=== PATIENT | female | born 1960 | race Caucasian/White ===

== ENCOUNTER → 2016-08-30 | Outpatient (CLI) | payer BC ==
--- NOTE | 2016-08-31 08:37 | USB ---
Reason for exam: clinical finding. History: Patient is postmenopausal. Benign excisional biopsy of the left breast. Indicated problem(s): pain in the left breast. Physical Findings: Nurse Summary: patient unsure is she has breast discharge (nurse dw). US Breast LT Left breast ultrasound includes all four quadrants, the retroareolar region and axilla. Finding demonstrates duct ectasia at 2 o'clock. These results were verbally communicated with the patient and result sheet given to the patient on 08/30/16. ASSESSMENT: Benign, BI-RAD 2 RECOMMENDATION: Return to routine screening mammogram schedule for both breasts. Back on schedule. Manage patient on a clinical basis. Consider surgical consultation.
== END | disposition home or self-care (01) ==
LOC: RADUSWWP 15:07
PROVIDERS: ATTEND Family Medicine
DX: N64.4 Mastodynia (principal); N64.59 Other signs and symptoms in breast

== ENCOUNTER → 2017-02-21 | Outpatient (CLI) | payer BC ==
--- NOTE | 2017-02-25 09:04 | MM ---
Reason for exam: screening (asymptomatic). Last mammogram was performed 1 year and 2 months ago. History: Patient is postmenopausal. Benign excisional biopsy of the left breast. Physical Findings: A clinical breast exam by your physician is recommended on an annual basis and results should be correlated with mammographic findings. MG Screening Mammo w CAD Bilateral CC and MLO view(s) were taken. Prior study comparison: December 28, 2015, bilateral MG screening mammo w CAD. November 26, 2014, bilateral MG diagnostic mammo w CAD [facility]. The breast tissue is heterogeneously dense. This may lower the sensitivity of mammography. Finding: There are typically benign overall stable diffuse/scattered calcifications in both breasts. No suspicious abnormality. No significant changes in finding since December 28, 2015 and November 26, 2014. ASSESSMENT: Benign, BI-RAD 2 RECOMMENDATION: Routine screening mammogram of both breasts in 1 year.
== END | disposition home or self-care (01) ==
LOC: RADMAMWWP 16:08
PROVIDERS: ATTEND Family Medicine
DX: Z12.31 Encounter for screening mammogram for malignant neoplasm of breast (principal)

== ENCOUNTER → 2017-05-08 | Outpatient (CLI) | payer BC ==
--- NOTE | 2017-05-09 22:11 | BD ---
EXAMINATION TYPE: MG DEXA axial skeleton. DATE OF EXAM: 05/08/2017 COMPARISON: NONE CLINICAL HISTORY: Height: 61 IN Weight: 117 LBS FRAX RISK QUESTIONS: Alcohol (3 or more units per day): NO Family History (Parent hip fracture): NO Glucocorticoids (More than 3mos): NO (Ex: prednisone, prednisolone, methylprednisolone, dexamethasone, and hydrocortisone). History of Fracture in Adulthood: NO Secondary Osteoporosis: 1. Type 1 Diabetes: NO 2. Hyperthyroidism: NO 3. Menopause before 45: NO 4. Malnutrition: NO 5. Chronic liver disease: NO Rheumatoid Arthritis: NO Current Tobacco Use: NO RISK FACTORS HISTORY OF: Active: YES Postmenopausal woman: AGE 53 MEDICATIONS: Additional Medications: CALCIUM, CELEXA,VIT D, EXAM MEASUREMENTS: Bone mineral densitometry was performed using the [employer] System. Bone mineral density as measured about the Lumbar spine is: ----- L1-L4(G/cm2): 0.873 T Score Values are as follows: ----- L2: -3.1 ----- L3: -2.2 ----- L4: -2.5 ----- L1-L4: -2.6 Bone mineral density BASELINE Bone mineral density about the R hip (g/cm2): 0.662 Bone mineral density about the L hip (g/cm2): 0.725 T Score values are as follows: -----R Neck: -2.7 -----L Neck: -2.3 -----R Total: -2.2 -----L Total: -1.8 Bone mineral density BASELINE IMPRESSION: Osteoporosis (T Score less than -2.5) as noted by T Score values at the There is increased fracture risk and therapy is usually indicated based on age. Re-Screen 1-2 years. NOTE: T-SCORE=SD OF THE YOUNG ADULT MEAN.
== END | disposition home or self-care (01) ==
LOC: RADBDWWP 15:50
PROVIDERS: ATTEND Family Medicine
DX: M81.0 Age-related osteoporosis without current pathological fracture (principal)
CPT/HCPCS: 77080

== ENCOUNTER → 2017-05-09 | Outpatient (CLI) | payer BC ==
--- NOTE | 2017-05-09 12:07 | FL ---
Modified barium swallow. HISTORY: Dysphagia. Modified barium swallow was performed with the department of speech pathology. The patient was prese nted with various consistencies of barium. There is no evidence for aspiration or penetration. There is reversal of the normal cervical lordosi s. Bone spur formation at C5-6 and C6-7 with mass effect upon the posterior wall of the cervical esop hagus. No evidence for obstruction. Full report is to follow from the department of speech pathology. Impression: No evidence for aspiration or penetration.
== END | disposition home or self-care (01) ==
LOC: RADFLMAIN 10:54
PROVIDERS: ATTEND Family Medicine
DX: R13.10 Dysphagia, unspecified (principal)
CPT/HCPCS: 74230

== ENCOUNTER → 2017-05-17 | Outpatient (CLI) | payer BC ==
--- NOTE | 2017-05-17 18:48 | XR ---
EXAMINATION TYPE: XR cervical spine comp DATE OF EXAM: 05/17/2017 COMPARISON: NONE HISTORY: Foreign body sensation TECHNIQUE: 5 views FINDINGS: There is a mild cervical kyphotic curvature at C4-5 level. There is narrowing and spurring at C5-6 C6-7. Posterior elements appear intact. I see no fracture. Epiglottis appears normal. Subglot tic trachea appears normal. There is no sign of radiopaque foreign body. IMPRESSION: Spondylitic changes in the lower cervical spine. No fracture.
== END | disposition home or self-care (01) ==
LOC: RADXRYALE 16:30
PROVIDERS: ATTEND Family Medicine
DX: M47.812 Spondylosis without myelopathy or radiculopathy, cervical region (principal)
CPT/HCPCS: 72050

== ENCOUNTER → 2017-06-29 | Outpatient (CLI) | payer BC ==
--- NOTE | 2017-06-29 14:19 | MR ---
EXAMINATION TYPE: MR cervical spine wo con DATE OF EXAM: 06/29/2017 COMPARISON: NONE HISTORY: Neck pain, headaches, BUE weakness TECHNIQUE: Multiplanar, multisequence images of the cervical spine were acquired. C2-C3: Facet arthropathy. No disc herniation or canal stenosis. There is mild left-sided foraminal en croachment. C3-C4: Disc desiccation. There is facet arthropathy greater on the left but no canal stenosis, disc h erniation or foraminal encroachment. C4-C5: There is a central disc protrusion results in effacement of thecal sac. No spinal cord contact . Set arthropathy with mild left-sided foraminal encroachment. C5-C6: Severe degenerative disc disease with a broad-based central and left paracentral disc herniati on resulting in anterior compression of the spinal cord. There is severe left-sided foraminal encroac hment. Bilateral uncovertebral joint noted with mild right foraminal encroachment. C6-C7: Severe degenerative disc disease with broad-based central and left paracentral disc herniation results in AP spinal canal stenosis and abuts the anterior margin of the spinal cord. Severe left-s ided foraminal encroachment and moderate right-sided foraminal encroachment C7-T1: No evidence for degenerative disc disease. No disc bulge/herniation or protrusion. No Canal stenosis. Foramina are patent bilaterally. Cervical segments are intact. There is a reversal of the normal cervical lordosis. Heterogeneity of t he thyroid suggests thyroiditis correlate clinically. Craniovertebral junction relationships are with in normal limits. IMPRESSION: 1. Multilevel degenerative disc disease with a kyphosis centered at levels C4-C6. This results in dis tortion of the thecal sac and compression of the thecal sac. Canal stenosis noted of C4-5, C5-6 and C 6-C7. 2. Disc herniations at C4-5, C5-6 and C6-C7 resulting in significant thecal sac compression. There is spinal cord compression at C5-C6 3. Multilevel foraminal encroachment with most marked findings seen on the left at levels C4-C7.
== END | disposition home or self-care (01) ==
LOC: RADMRIMAIN 13:04
PROVIDERS: ATTEND Family Medicine
DX: M48.02 Spinal stenosis, cervical region (principal); M50.221 Other cervical disc displacement at C4-C5 level; M50.321 Other cervical disc degeneration at C4-C5 level; M40.292 Other kyphosis, cervical region; G95.29 Other cord compression
CPT/HCPCS: 72141

== ENCOUNTER → 2017-11-07 | Outpatient (CLI) | payer BC ==
--- NOTE | 2017-11-08 07:42 | MM ---
Reason for exam: clinical finding. Last mammogram was performed 9 months ago. History: Patient is postmenopausal. Benign excisional biopsy of the left breast. Physical Findings: Nurse did not find any significant physical abnormalities on exam. MG 3D Diag Mammo W/Cad LT CC and MLO view(s) were taken of the left breast. Prior study comparison: February 21, 2017, bilateral MG screening mammo w CAD. December 28, 2015, bilateral MG screening mammo w CAD. The breast tissue is extremely dense which could obscure a lesion on mammography. Finding: There are typically benign diffuse/scattered calcifications in the left breast. No suspicious abnormality. Left nipple retraction is unchanged from the prior. These results were verbally communicated with the patient and result sheet given to the patient on 11/07/17. ASSESSMENT: Benign, BI-RAD 2 RECOMMENDATION: Return to routine screening mammogram schedule for both breasts. Back on schedule.
== END | disposition home or self-care (01) ==
LOC: RADMAMWWP 15:43
PROVIDERS: ATTEND Surgery
DX: N64.53 Retraction of nipple (principal)
CPT/HCPCS: 77061; 77065

== ENCOUNTER → 2018-10-24 | Outpatient (CLI) | payer BC ==
--- NOTE | 2018-10-24 10:21 | XR ---
EXAMINATION TYPE: XR wrist complete LT DATE OF EXAM: 10/24/2018 COMPARISON: NONE HISTORY: Pain TECHNIQUE: Four views submitted. FINDINGS: The osseous structures are intact. The joint spaces are preserved and there is no acute fracture or dislocation. IMPRESSION: 1. No definite acute fracture or dislocation if symptoms persist, follow-up study in 7 to 10 days wo uld be suggested
== END | disposition home or self-care (01) ==
LOC: RADXRMAIN 09:42
PROVIDERS: ATTEND Physician Assistant Medical
DX: M25.532 Pain in left wrist (principal)

== ENCOUNTER → 2019-02-23 | Outpatient (CLI) | payer BC ==
--- NOTE | 2019-02-23 12:44 | FL ---
Modified barium swallow. HISTORY: Dysphagia. Modified barium swallow was performed with the department of speech pathology. The patient was prese nted with various consistencies of barium. There is no evidence for aspiration or penetration. Full report is to follow from the department of speech pathology. Ventral spurring noted at C5-6 and C6-7 which may account for the patient's symptom s. Correlate clinically. Impression: No evidence for aspiration or penetration.
== END | disposition home or self-care (01) ==
LOC: RADFLMAIN 11:28
PROVIDERS: ATTEND Family Medicine
DX: R13.19 Other dysphagia (principal)
CPT/HCPCS: 74230

== ENCOUNTER 2019-04-10 09:47 | Day surgery (SDC) | payer BC ==
[2019-04-03 14:47] VITALS: BMI 21.7
[~2019-04-10 09:47] MED LIST: LACTATED RINGERS 1,000 ML IV SCH; LIDOCAINE 1% 20 ML VIAL (10MG/ML) FOR IV START INTRADERMA PRN
[2019-04-10 10:11] VITALS: RESP 16; TEMP 98.1
[2019-04-10] MEDS ORDERED: PROPOFOL 10 MG/ML 20 ML VIAL IV ONE (11:25)
--- NOTE | 2019-04-10 11:47 | P.PCN ---
Date of Procedure: 04/10/19 Procedure(s) Performed: BRIEF HISTORY: Patient is a 58-year-old pleasant female scheduled for an elective colonoscopy as a part of evaluation change in bowel habits for the last 6 months duration. PROCEDURE PERFORMED: Colonoscopy. PREOPERATIVE DIAGNOSIS: Change in Bowel habits of 6 months duration. IV sedation per Anesthesia. PROCEDURE: After informed consent was obtained, the patient, was brought into the endoscopy unit. IV sedation was administered by Anesthesia under continuous monitoring. Digital rectal examination was normal. Initially the Olympus CF-160 flexible video colonoscope was then inserted in the rectum, gradually advanced into the cecum without any difficulty. Careful examination was performed as the scope was gradually being withdrawn. Ileocecal valve and the appendiceal orifice were visualized and appeared normal. Prep was excellent. Mucosa of the cecum, ascending colon, transverse colon, descending colon, sigmoid colon, and rectum appeared normal. Retroflexion was performed in the rectum and no lesions were seen. The patient tolerated the procedure well. IMPRESSION: Normal-appearing colon from rectum to cecum with no evidence of colorectal. RECOMMENDATIONS: Findings of this examination were discussed with the patient as well as a family. She was advised to have a repeat scanning colonoscopy in 10 years.
[2019-04-10 12:09] VITALS: BP 115/66; PULSE 56
== END 2019-04-10 12:32 | disposition home or self-care (01) ==
LOC: ORWHC2ENDO 09:47
PROVIDERS: ATTEND Internal Medicine Gastroenterology
DX: R19.4 Change in bowel habit (principal); F32.9 Major depressive disorder, single episode, unspecified; Z88.1 Allergy status to other antibiotic agents; Z88.2 Allergy status to sulfonamides; Z98.890 Other specified postprocedural states; Z79.1 Long term (current) use of non-steroidal anti-inflammatories (NSAID); Z79.899 Other long term (current) drug therapy
CPT/HCPCS: 45378; J2704

== ENCOUNTER → 2019-11-18 | Outpatient (CLI) | payer BC ==
--- NOTE | 2019-11-18 16:34 | BD ---
EXAMINATION TYPE: Axial Bone Density DATE OF EXAM: 11/18/2019 COMPARISON: NONE CLINICAL HISTORY: Height: 5 FT 1 3/4 IN Weight: 117 FRAX RISK QUESTIONS: Alcohol (3 or more units per day): NO Family History (Parent hip fracture): NO Glucocorticoids (More than 3mos): NO (Ex: prednisone, prednisolone, methylprednisolone, dexamethasone, and hydrocortisone). History of Fracture in Adulthood: NO Secondary Osteoporosis: 1. Type 1 Diabetes: NO 2. Hyperthyroidism: NO 3. Menopause before 45: NO 4. Malnutrition: NO 5. Chronic liver disease: NO Rheumatoid Arthritis: NONO Current Tobacco Use: RISK FACTORS HISTORY OF: Family History of Osteoporosis: UNKNOWN Active: YES Postmenopausal woman: AGE 53 MEDICATIONS: Osteoporosis Medications: YES Which medication: BONIVA How Long: THREE YEARS Additional Medications: BONIVA,MULTI, CELEXA, Additional History: EXAM MEASUREMENTS: Bone mineral densitometry was performed using the [employer] System. Bone mineral density as measured about the Lumbar spine is: ----- L1-L4(G/cm2): 0.929 T Score Values are as follows: ----- L2: -2.6 ----- L3: -2.0 ----- L4: -1.9 ----- L1-L4: -2.1 Bone mineral density has: INCREASED 6.1 % since study of: 2018 Bone mineral density about the R hip (g/cm2): 0.699 Bone mineral density about the L hip (g/cm2): 0.780 T Score values are as follows: -----R Neck: -2.4 -----L Neck: -1.9 -----R Total: -1.9 -----L Total: -1.4 Bone mineral density has: INCREASED 5.8 % since study of: 2018 IMPRESSION: Osteopenia (T Score between -2.5 and -1). There is slightly increased risk of fracture and the patient may be considered for treatment. Re-Screen 2-5 years. NOTE: T-SCORE=SD OF THE YOUNG ADULT MEAN.
--- NOTE | 2019-11-23 13:38 | MM ---
Reason for exam: screening (asymptomatic). Last mammogram was performed 2 years ago. History: Patient is postmenopausal. Benign excisional biopsy of the left breast. Physical Findings: A clinical breast exam by your physician is recommended on an annual basis and results should be correlated with mammographic findings. MG Screening Mammo w CAD Bilateral CC and MLO view(s) were taken. Prior study comparison: November 07, 2017, left breast MG 3d diag mammo w/cad LT. February 21, 2017, bilateral MG screening mammo w CAD. The breast tissue is heterogeneously dense. This may lower the sensitivity of mammography. There are benign appearing regional round calcifications bilaterally. There is no discrete abnormality. ASSESSMENT: Benign, BI-RAD 2 RECOMMENDATION: Routine screening mammogram of both breasts in 1 year.
== END | disposition home or self-care (01) ==
LOC: RADMAMWWP 15:51
PROVIDERS: ATTEND Family Medicine
DX: Z12.31 Encounter for screening mammogram for malignant neoplasm of breast (principal); M84.9 Disorder of continuity of bone, unspecified
CPT/HCPCS: 77067; 77080

== ENCOUNTER → 2020-05-02 | Outpatient (CLI) | payer BC ==
--- NOTE | 2020-05-05 13:18 | HM ---
HOLTER MONITOR REPORT Patient was monitored for 24 hours. The baseline rhythm is sinus mechanism. The average rate 69 beats per minute, minimum 49, maximum 123 beats per minute. Ventricular ectopic activity was not present. Supraventricular ectopic activity was present of rare single PACs. No diary was available. CONCLUSION: 1. Sinus mechanism baseline rhythm. 2. No ventricular ectopic activity. 3. Rare supraventricular ectopic activity. 4. No diary was available. MMODL / IJN: [id number] /
== END | disposition home or self-care (01) ==
LOC: RADECHMAIN 12:13
PROVIDERS: ATTEND Family Medicine
DX: R00.2 Palpitations (principal)
CPT/HCPCS: 93225; 93226

== ENCOUNTER → 2020-06-22 | Outpatient (CLI) | payer BC ==
--- NOTE | 2020-06-22 19:52 | XR ---
Cervical spine HISTORY: Neck pain 5 views of the cervical spine correlated prior exam 05/17/2017 There is reversal the normal cervical lordosis as on prior exam. Anterolisthesis grade 1 C4-5, there is loss of disc height C5-6, C6-7 with associated spondylosis. Prevertebral soft tissues are normal. Cervical vertebral bodies show preserved height. Oblique images show foraminal encroachment on the ri ght at C5-6 and on the left at C5-6, C6-7. There are facet arthropathy changes. IMPRESSION: Stable degenerative disc disease. Kyphotic curvature C4-5 is again noted.
--- NOTE | 2020-06-22 19:56 | XR ---
Right shoulder HISTORY: Pain 3 views of the right shoulder Bone mineralization, joint spaces and alignment are maintained. No fracture or dislocation. Right pee g is unremarkable. IMPRESSION: Normal right shoulder.
== END | disposition home or self-care (01) ==
LOC: RADXRYALE 15:51
PROVIDERS: ATTEND Physician Assistant Medical
DX: M50.30 Other cervical disc degeneration, unspecified cervical region (principal); M40.202 Unspecified kyphosis, cervical region; M47.22 Other spondylosis with radiculopathy, cervical region; M25.511 Pain in right shoulder
CPT/HCPCS: 72050

== ENCOUNTER → 2020-10-14 | Outpatient (CLI) | payer BC ==
--- NOTE | 2020-10-15 06:17 | MR ---
EXAMINATION TYPE: MR cervical spine wo con DATE OF EXAM: 10/14/2020 COMPARISON: 06/29/2017 HISTORY: Neck pain down both arms for 4 years. Multiplanar multiecho imaging of the cervical spine without contrast. There is mild cervical kyphotic deformity at the C5-6 level. There is mild narrowing of disc spaces a t C5-6 and C6-7. There is small posterior disc herniations at C5-6 and to a lesser extent C6-7. The s rojelio canal measures 8 mm at C5-6 which is the narrowest point. The brainstem is intact. The cerebell um is intact there is no evidence of edema in the cervical spinal cord. There is no compression fract ure. Posterior elements are intact. There is no evidence of paraspinal mass. IMPRESSION: Spondylotic changes in the lower cervical spine. Chronic posterior disc herniations at C5-6 and C6-7 with overall not a significant adverse change. Kyphotic deformity probably related to old ligamentous injury. No significant spinal stenosis.
== END | disposition home or self-care (01) ==
LOC: RADMRIMAIN 15:15
PROVIDERS: ATTEND Physician Assistant Medical
DX: M50.123 Cervical disc disorder at C6-C7 level with radiculopathy (principal); M47.22 Other spondylosis with radiculopathy, cervical region
CPT/HCPCS: 72141

== ENCOUNTER → 2020-11-18 | Outpatient (CLI) | payer BC ==
--- NOTE | 2020-11-22 09:00 | MM ---
Reason for exam: screening (asymptomatic). Last mammogram was performed 1 year ago. History: Patient is postmenopausal. Benign excisional biopsy of the left breast. Physical Findings: A clinical breast exam by your physician is recommended on an annual basis and results should be correlated with mammographic findings. MG 3D Screening Mammo W/Cad Bilateral CC and MLO view(s) were taken. Prior study comparison: November 18, 2019, bilateral MG screening mammo w CAD. February 21, 2017, bilateral MG screening mammo w CAD. December 28, 2015, bilateral MG screening mammo w CAD. The breast tissue is heterogeneously dense. This may lower the sensitivity of mammography. Stable scattered and regional bilateral punctate calcifications. No significant changes when compared with prior studies. ASSESSMENT: Negative, BI-RAD 1 RECOMMENDATION: Routine screening mammogram of both breasts in 1 year.
== END | disposition home or self-care (01) ==
LOC: RADMAMWWP 16:21
PROVIDERS: ATTEND Family Medicine
DX: Z12.31 Encounter for screening mammogram for malignant neoplasm of breast (principal); Z78.0 Asymptomatic menopausal state
CPT/HCPCS: 77063; 77067

== ENCOUNTER → 2021-11-27 | Outpatient (CLI) | payer BC ==
--- NOTE | 2021-11-28 10:48 | MM ---
Reason for Exam: Screening (asymptomatic). Last screening mammogram was performed 12 month(s) ago. Patient History: Menarche at age 14. First Full-Term at age 27. Postmenopausal. Benign Excisional Biopsy on the left side. Risk Values: Marry 5 year model risk: 1.9%. NCI Lifetime model risk: 9.5%. Prior Study Comparison: 11/07/2017 Left Diagnostic Mammogram, [facility]. 11/18/2019 Bilateral Screening Mammogram, [facility]. 11/18/2020 Bilateral Screening Mammogram, [facility]. Tissue Density: The breast tissue is heterogeneously dense. This may lower the sensitivity of mammography. Findings: Analyzed By CAD. There is no suspicious group of microcalcifications or new suspicious mass in either breast. Overall Assessment: Negative, BI-RAD 1 Management: Screening Mammogram of both breasts in 1 year. A clinical breast exam by your physician is recommended on an annual basis and results should be correlated with mammographic findings. Electronically signed and approved by: Hussein Rueda DO
== END | disposition home or self-care (01) ==
LOC: RADMAMWWP 14:07
PROVIDERS: ATTEND Family Medicine
DX: Z12.31 Encounter for screening mammogram for malignant neoplasm of breast (principal); Z78.0 Asymptomatic menopausal state
CPT/HCPCS: 77063; 77067

== ENCOUNTER → 2022-04-10 | Outpatient (CLI) | payer BC ==
--- NOTE | 2022-04-13 19:55 | HM ---
HOLTER MONITOR REPORT The patient was monitored for 48 hours. CLINICAL INFORMATION: Baseline rhythm is a sinus mechanism with normal conduction, the average rate 71 beats per minute, minimum 53, maximum 109 beats per minute. Ventricular ectopic activity was present in the form of rare single PVCs. Supraventricular ectopic activity was present in the form of rare single PACs. No diary was available. CONCLUSION: 1. Sinus mechanism baseline rhythm. 2. Rare single PACs. 3. Rare single PVCs. 4. No diary was available. MMODL / IJN: [id number] /
== END | disposition home or self-care (01) ==
LOC: RADECHMAIN 11:46
PROVIDERS: ATTEND Family Medicine
DX: R00.2 Palpitations (principal)
CPT/HCPCS: 93225; 93226

== ENCOUNTER → 2022-11-15 | Outpatient (CLI) | payer BC ==
--- NOTE | 2022-11-16 08:56 | XR ---
EXAMINATION TYPE: XR knee complete LT DATE OF EXAM: 11/15/2022 COMPARISON: NONE HISTORY: Pain TECHNIQUE: Three views are submitted. FINDINGS: Diffuse osteopenia with mild to moderate narrowing of the medial compartment of knee joint. There is a tiny spur along the upper margin of the patella.. Osseous structures are intact. No acute fractur e seen. Diffuse osteopenia. IMPRESSION: 1. [id number] osteoarthritis.
== END | disposition home or self-care (01) ==
LOC: RADXRYALE 16:45
PROVIDERS: ATTEND Physician Assistant
DX: M17.12 Unilateral primary osteoarthritis, left knee (principal)

== ENCOUNTER → 2023-01-30 | Outpatient (CLI) | payer BC ==
--- NOTE | 2023-01-31 12:36 | MM ---
Reason for Exam: Screening (asymptomatic). Last mammogram was performed 1 year(s) and 2 month(s) ago. Patient History: Menarche at age 14. First Full-Term at age 27. Postmenopausal. Benign Excisional Biopsy on the left side. Risk Values: Marry 5 year model risk: 1.9%. NCI Lifetime model risk: 9.3%. Prior Study Comparison: 11/18/2019 Bilateral Screening Mammogram, [facility]. 11/18/2020 Bilateral Screening Mammogram, [facility]. 11/27/2021 Bilateral MG 3D screening mammo w/cad, [facility]. Tissue Density: The breast tissue is heterogeneously dense. This may lower the sensitivity of mammography. Findings: Analyzed By CAD. There is no suspicious group of microcalcifications or new suspicious mass. Overall Assessment: Negative, BI-RAD 1 Management: Screening Mammogram of both breasts in [address] [facility] will attempt to contact patient to return for supplemental views and ultrasound if indicated. Patient should continue monthly self-breast exams. A clinical breast exam by your physician is recommended on an annual basis. This exam should not preclude additional follow-up of suspicious palpable abnormalities. Note on Marry scores and lifetime risk: 1. A Marry score greater than 3% is considered moderate risk. If this is the case, consider specialist referral to assess eligibility for a risk reducing agent. 2. If overall lifetime risk for the development of breast cancer is 20% or higher, the patient may qualify for future screening with alternating mammogram and breast MRI. Electronically signed and approved by: Hussein Rueda DO
== END | disposition home or self-care (01) ==
LOC: RADMAMWWP 16:50
PROVIDERS: ATTEND Family Medicine
DX: Z12.31 Encounter for screening mammogram for malignant neoplasm of breast (principal); Z78.0 Asymptomatic menopausal state
CPT/HCPCS: 77063; 77067

== ENCOUNTER → 2023-04-25 | Outpatient (CLI) | payer BC ==
--- NOTE | 2023-04-26 07:04 | MR ---
MRI CERVICAL SPINE: CLINICAL HISTORY: Neck pain into both arms, headaches. Cervical region radiculopathy. TECHNIQUE: Multiplanar, multisequence imaging of the cervical spine is performed without IV contrast. COMPARISON: Prior MRI cervical spine October 14, 2020. FINDINGS: Sagittal images of the cervical spine show the craniocervical junction to remain within nor mal limits. The cervical and upper thoracic spinal cord is normal in caliber and signal. Reversal of normal cervical curvature centered at C5 level with redemonstrated. The vertebral body heights are normal. Mild to moderate spurring and disc space narrowing at C5-C6 and C6-C7 levels is redemonstrat ed. The bone marrow signal intensity is within normal limits. Axial images at C2-C3 level redemonstrated left-sided uncovertebral facet degenerative change causing moderate left-sided neural foraminal narrowing. Axial images at C3-C4 level remain within normal limits. Axial images at C4-C5 level redemonstrate tiny central disc protrusion mildly effacing intrathecal sa c, patent bilateral neural foramina. Axial images at C5-C6 level show posterior broad-based left paracentral disc protrusion effaces the a nterolateral thecal sac and causing advanced left-sided neural foraminal narrowing similar to prior. Axial images at C6-C7 level shows broad-based left paracentral disc protrusion effaces the anterolate ral thecal sac and causing advanced left-sided neural foraminal narrowing similar to prior. Axial images at C7-T1 level shows mild broad-based left paracentral disc protrusion effacing anterior thecal sac and causing moderate left-sided neural foraminal narrowing similar to prior. IMPRESSION: Loss of normal cervical curvature with multilevel degenerative change greatest in the mid to lower cervical spine redemonstrated as detailed above. No significant change from most recent rosemarie or.
== END | disposition home or self-care (01) ==
LOC: RADMRIMAIN 16:44
PROVIDERS: ATTEND Anesthesiology Pain Medicine
DX: M47.22 Other spondylosis with radiculopathy, cervical region (principal)
CPT/HCPCS: 72141

== ENCOUNTER 2023-11-22 08:00 | Day surgery (SDC) | payer BC ==
[2023-11-22] MEDS ORDERED: LACTATED RINGERS 1,000 ML BAG ONE (09:00)
[2023-11-22] MEDS ORDERED: PROPOFOL 10 MG/ML 20 ML VIAL IV ONE (09:47)
--- NOTE | 2023-12-13 17:17 | P.PCN ---
Date of Procedure: 11/22/23 Procedure(s) Performed: This an addendum for the procedure that was performed on 11/22/2023. Procedure performed EGD with biopsy Procedure. Scope was advanced to the duodenum. Careful examination was performed. There was evidence of mild antral gastritis and biopsies were done from this area. Small hiatal hernia noted. Esophagus appeared normal. Biopsies were done for the esophagus.
== END 2023-11-22 10:55 ==
LOC: ORWHC2ENDO 08:00 → LABPRL 08:00 → ORWHC2ENDO 10:55 → EDSTATUS 14:56
PROVIDERS: ATTEND Internal Medicine Gastroenterology
DX: K29.50 Unspecified chronic gastritis without bleeding (principal); K21.00 Gastro-esophageal reflux disease with esophagitis, without bleeding; K44.9 Diaphragmatic hernia without obstruction or gangrene; Z79.899 Other long term (current) drug therapy
CPT/HCPCS: 43239; 88305

== ENCOUNTER → 2024-05-07 | Outpatient (CLI) | payer BC ==
--- NOTE | 2024-05-08 07:50 | MM ---
Reason for Exam: Screening (asymptomatic). Last mammogram was performed 1 year(s) and 3 month(s) ago. Patient History: Menarche at age 14. First Full-Term at age 27. Postmenopausal. Benign Excisional Biopsy on the left side. Risk Values: Marry 5 year model risk: 2.0%. NCI Lifetime model risk: 9.0%. Prior Study Comparison: 11/18/2020 Bilateral Screening Mammogram, [facility]. 11/27/2021 Bilateral MG 3D screening mammo w/cad, [facility]. 01/30/2023 Bilateral MG 3D screening mammo w/cad, [facility]. Tissue Density: The breasts are heterogeneously dense, which may obscure small masses. Findings: Analyzed By CAD. Some punctate regional calcifications are redemonstrated. Asymmetric density superior posterior left MLO view is unchanged. No persisting abnormality on 3-D images. There is no suspicious group of microcalcifications or new suspicious mass in either breast. Overall Assessment: Benign, BI-RAD 2 Management: Screening Mammogram of both breasts in 1 year. Patient should continue monthly self-breast exams. A clinical breast exam by your physician is recommended on an annual basis. This exam should not preclude additional follow-up of suspicious palpable abnormalities. Note on Marry scores and lifetime risk: 1. A Marry score greater than 3% is considered moderate risk. If this is the case, consider specialist referral to assess eligibility for a risk reducing agent. 2. If overall lifetime risk for the development of breast cancer is 20% or higher, the patient may qualify for future screening with alternating mammogram and breast MRI. [facility], , 05/08/2024 7:48 AM. Electronically signed and approved by: Ishan Dooley M.D. Radiologist
== END | disposition home or self-care (01) ==
LOC: RADMAMWWP 16:27
PROVIDERS: ATTEND Family Medicine
DX: Z12.31 Encounter for screening mammogram for malignant neoplasm of breast (principal); R92.333 Mammographic heterogeneous density, bilateral breasts; Z78.0 Asymptomatic menopausal state
CPT/HCPCS: 77063; 77067

== ENCOUNTER → 2024-11-02 | Outpatient (CLI) | payer BC ==
--- NOTE | 2024-11-02 20:53 | XR ---
EXAMINATION TYPE: XR shoulder complete RT DATE OF EXAM: 11/02/2024 5:04 PM COMPARISON: 06/22/2020 CLINICAL INDICATION: Female, 64 years old with history of [id number] RT SHLD PAIN; YCH, pain TECHNIQUE: 3 views FINDINGS: AC joint appears intact. Subacromial space is preserved. Smooth delineation to the greater tuberosity . No acute fracture, subluxation, or dislocation. IMPRESSION: Unremarkable radiographic appearance of the right shoulder. If symptoms persist, consider MRI. [facility], , 11/02/2024 8:50 PM
== END | disposition home or self-care (01) ==
LOC: RADXRYALE 16:51
PROVIDERS: ATTEND Physician Assistant Medical
DX: M25.511 Pain in right shoulder (principal)